=== PATIENT | female | born 1995 | race American Indian/Alaskan Native ===

== ENCOUNTER 2020-06-07 15:33 | Emergency (ER) | payer MEDICAID ==
[2020-06-07 16:38] VITALS: BP 111/72
--- NOTE | 2020-06-07 20:01 | Emergency Department Report ---
ED General Adult HPI - General Chief complaint: Extremity Injury, Upper Stated complaint: NECK/BACK/ARM PAIN Time Seen by Provider: 06/07/20 19:42 Source: patient Mode of arrival: Ambulatory Limitations: No Limitations - History of Present Illness Initial comments: Patient is a 24-year-old female presents emergency room with complaints of right-sided neck pain and right arm pain that began 4 days ago. She denies any fall or injury. 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 She denies any numbness or weakness. she does not report any fever, n/v/d, neck stiffness. She has a past medical history of asthma. No allergies medications. Last menstrual cycle May 12. - Related Data Previous Rx's Medication Instructions Recorded Last Taken Type Naproxen [EC-Naproxen] 500 mg PO BID PRN #14 tablet. 06/07/20 Unknown Rx methOCARBAMOL [Robaxin TAB] 500 mg PO BID PRN #10 tab 06/07/20 Unknown Rx Allergies Allergy/AdvReac Type Severity Reaction Status Date / Time No Known Allergies Allergy Unverified 06/07/20 16:36 ED Review of Systems ROS: Stated complaint: NECK/BACK/ARM PAIN Other details as noted in HPI Comment: All other systems reviewed and negative ED Past Medical Hx - Past Medical History Previous Medical History?: Yes Hx Asthma: Yes - Surgical History Past Surgical History?: Yes Additional Surgical History: x 1 - Social History Smoking Status: Current Every Day Smoker Substance Use Type: None - Medications Home Medications: Home Medications Medication Instructions Recorded Confirmed Last Taken Type Naproxen [EC-Naproxen] 500 mg PO BID PRN #14 tablet. 06/07/20 Unknown Rx methOCARBAMOL [Robaxin TAB] 500 mg PO BID PRN #10 tab 06/07/20 Unknown Rx ED Physical Exam - General Limitations: No Limitations General appearance: alert, in no apparent distress - Head Head exam: Present: atraumatic, normocephalic - Eye Eye exam: Present: normal appearance - ENT ENT exam: Present: mucous membranes moist - Neck Neck exam: Present: normal inspection, tenderness (right sided paraspinal C- spine muscular ttp, no midline C-spine ttp, no step offs, no deformities ), full ROM. Absent: meningismus, lymphadenopathy - Respiratory Respiratory exam: Present: normal lung sounds bilaterally. Absent: respiratory distress, wheezes, rales, rhonchi, stridor, chest wall tenderness, accessory muscle use, decreased breath sounds, prolonged expiratory - Cardiovascular Cardiovascular Exam: Present: regular rate, normal rhythm, normal heart sounds. Absent: systolic murmur, diastolic murmur, rubs, gallop - Extremities Exam Extremities exam: Present: other (mild right sided trapezius ttp, no crepitus, no deformity, FROM of the RUE, no bony ttp of the RUE, neurovascularly intact) - Back Exam Back exam: Present: normal inspection, full ROM. Absent: paraspinal tenderness, vertebral tenderness - Neurological Exam Neurological exam: Present: alert, oriented X3, CN II-XII intact, normal gait. Absent: motor sensory deficit - Psychiatric Psychiatric exam: Present: normal affect, normal mood - Skin Skin exam: Present: warm, dry, intact ED Course Vital Signs 06/07/20 06/07/20 16:36 20:12 Temperature 98.1 F Pulse Rate 79 67 Respiratory 18 16 Rate Blood Pressure 111/72 O2 Sat by Pulse 100 100 Oximetry ED Medical Decision Making - Medical Decision Making Patient is a 24-year-old female presents emergency room with complaints of right-sided neck pain and right arm pain that began 4 days ago. She denies any fall or injury. 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 She denies any numbness or weakness. she does not report any fever, n/v/d, neck stiffness. She has a past medical history of asthma. No allergies medications. Last menstrual cycle May 12. Vitals are normal. On exam:right sided paraspinal C-spine muscular ttp, no midline C-spine ttp, no step offs, no deformities, mild right sided trapezius ttp, no crepitus, no deformity, FROM of the RUE, no bony ttp of the RUE, neurovascularly intact, no focal neuro deficits. Examination appears most likely consistent with muscle strain, patient does repetitive movements and heavy lifting. She has no midline tenderness, no step-offs, no deformities, no focal neuro deficits. Patient given prescription for naproxen and Robaxin. Advised patient Please take medication as prescribed. Do not drive or operate heavy machinery or work while taking muscle relaxer Robaxin. May use ice pack, heating pad, rest, Epson salt bath. Follow-up with a primary care doctor. Return to emergency room for any new or worsening symptoms. - Differential Diagnosis muscle strain, cervical radiculopathy, torticolis, DDD, DJD, bulging disc Critical care attestation.: If time is entered above; I have spent that time in minutes in the direct care of this critically ill patient, excluding procedure time. ED Disposition Clinical Impression: Cervical muscle strain Qualifiers: Encounter type: initial encounter Qualified Code(s): S16.1XXA - Strain of muscle, fascia and tendon at neck level, initial encounter Strain of trapezius muscle Qualifiers: Encounter type: initial encounter Laterality: right Qualified Code(s): S46.811A - Strain of other muscles, fascia and tendons at shoulder and upper arm level, right arm, initial encounter Disposition: TO HOME OR SELFCARE Is pt being admited?: No Does the pt Need Aspirin: No Condition: Stable Instructions: Muscle Strain (ED) Additional Instructions: Please take medication as prescribed. Do not drive or operate heavy machinery or work while taking muscle relaxer Robaxin. May use ice pack, heating pad, rest, Epson salt bath. Follow-up with a primary care doctor. Return to emergency room for any new or worsening symptoms. Prescriptions: Naproxen [EC-Naproxen] 500 mg PO BID PRN #14 tablet.dr SLAUGHTERN Reason: pain methOCARBAMOL [Robaxin TAB] 500 mg PO BID PRN #10 tab PRN Reason: pain Referrals: PRIMARY MD TYRA [Primary Care Provider] - 2-3 Days FARHANA PADILLA MD [Staff Physician] - 2-3 Days [facility] [Provider Group] - 2-3 Days Forms: Work/School Release Form(ED) Time of Disposition: 20:01 Print Language: AMHARIC
== END 2020-06-07 20:12 | disposition home or self-care (01) ==
LOC: ED 15:33
DX: S16.1XXA Strain of muscle, fascia and tendon at neck level, initial encounter (principal); S46.911A Strain of unspecified muscle, fascia and tendon at shoulder and upper arm level, right arm, initial encounter; J45.909 Unspecified asthma, uncomplicated; F17.200 Nicotine dependence, unspecified, uncomplicated; Z98.890 Other specified postprocedural states; Z79.899 Other long term (current) drug therapy; X50.0XXA Overexertion from strenuous movement or load, initial encounter; Y93.89 Activity, other specified; Y92.89 Other specified places as the place of occurrence of the external cause; Y99.8 Other external cause status
CPT/HCPCS: 99282

== ENCOUNTER 2020-08-10 16:36 | Emergency (ER) | payer SELFPAY ==
[2020-08-10 17:18] VITALS: BP 110/78
--- NOTE | 2020-08-10 18:00 | Emergency Department Report ---
ED General Adult HPI - General Chief complaint: Neck Pain/Injury Stated complaint: NECK AND BACK PAIN Time Seen by Provider: 08/10/20 17:58 Source: patient Mode of arrival: Ambulatory Limitations: No Limitations - History of Present Illness Initial comments: 25-year-old -[place] female patient presents with complaints of recurrent right neck muscle spasms x 2 months. Patient was seen here in early June for the same and states the medications prescribed at the time did help with her symptoms. She states the symptoms occur while working due to her having repetitive motions of her right shoulder. She describes the pain as a tightness and rates it as a 7/10 in severity. Patient denies any head or neck trauma, numbness/tingling/weakness in her limbs, or difficulty moving her shoulder. No fever/chills/sweats per patient. - Related Data Previous Rx's Medication Instructions Recorded Last Taken Type Naproxen [EC-Naproxen] 500 mg PO BID PRN #30 tablet. 08/10/20 Unknown Rx methOCARBAMOL [Robaxin TAB] 500 mg PO BID PRN #30 tab 08/10/20 Unknown Rx Allergies Allergy/AdvReac Type Severity Reaction Status Date / Time No Known Allergies Allergy Verified 08/10/20 17:14 ED Review of Systems ROS: Stated complaint: NECK AND BACK PAIN Other details as noted in HPI Constitutional: denies: chills, fever, malaise Respiratory: denies: cough, shortness of breath Cardiovascular: denies: chest pain Musculoskeletal: denies: joint swelling, arthralgia Skin: denies: change in color Hematological/Lymphatic: denies: swollen glands ED Past Medical Hx - Past Medical History Hx Asthma: Yes - Surgical History Additional Surgical History: x 1 - Social History Smoking Status: Current Every Day Smoker Substance Use Type: None - Medications Home Medications: Home Medications Medication Instructions Recorded Confirmed Last Taken Type Naproxen [EC-Naproxen] 500 mg PO BID PRN #30 tablet. 08/10/20 Unknown Rx methOCARBAMOL [Robaxin TAB] 500 mg PO BID PRN #30 tab 08/10/20 Unknown Rx ED Physical Exam - General Limitations: No Limitations General appearance: alert, in no apparent distress - Head Head exam: Present: atraumatic, normocephalic - Eye Eye exam: Present: normal appearance - Neck Neck exam: Present: tenderness (Right trapezius muscle tenderness noted without vertebral tenderness or obvious deformity), full ROM, other (Patient has full range of motion of the right shoulder and normal sensation and perfusion) - Respiratory Respiratory exam: Absent: respiratory distress - Cardiovascular Cardiovascular Exam: Present: regular rate, normal rhythm - Extremities Exam Extremities exam: Present: full ROM - Back Exam Back exam: Present: normal inspection - Neurological Exam Neurological exam: Present: alert, oriented X3, normal gait - Psychiatric Psychiatric exam: Present: normal affect, normal mood ED Course Vital Signs 08/10/20 17:17 Temperature 99.1 F Pulse Rate 84 Respiratory 14 Rate Blood Pressure 110/78 O2 Sat by Pulse 100 Oximetry ED Medical Decision Making - Medical Decision Making 25-year-old -[place] female patient presents with complaints of recurrent right neck muscle spasms x 2 months. Patient was seen here in early June for the same and states the medications prescribed at the time did help with her symptoms. She states the symptoms occur while working due to her having repetitive motions of her right shoulder. She describes the pain as a tightness and rates it as a 7/10 in severity. Patient denies any head or neck trauma, numbness/tingling/weakness in her limbs, or difficulty moving her shoulder. No fever/chills/sweats per patient. No bony abnormalities noted on exam of the cervical spine. She has full range of motion of the shoulder and cervical spine. Patient given naproxen and Robaxin and informed she will need to follow-up with her primary care provider, referral provided. She is well-appearing, her vitals are normal, she is stable for discharge home. Discussed signs and symptoms that should prompt immediate return to the emergency department in detail with patient who verbalizes understanding. Critical care attestation.: If time is entered above; I have spent that time in minutes in the direct care of this critically ill patient, excluding procedure time. ED Disposition Clinical Impression: Muscle spasms of neck Disposition: - TO HOME OR SELFCARE Is pt being admited?: No Condition: Stable Instructions: Muscle Cramps and Spasms Prescriptions: Naproxen [EC-Naproxen] 500 mg PO BID PRN #30 tablet.dr SLAUGHTERN Reason: pain methOCARBAMOL [Robaxin TAB] 500 mg PO BID PRN #30 tab PRN Reason: muscle spasm/tightness Referrals: [facility] [Provider Group] - 3-5 Days
== END 2020-08-10 19:00 | disposition home or self-care (01) ==
LOC: ED 16:36
DX: M62.838 Other muscle spasm (principal); J45.909 Unspecified asthma, uncomplicated; F17.200 Nicotine dependence, unspecified, uncomplicated; Z79.899 Other long term (current) drug therapy; Z98.890 Other specified postprocedural states
CPT/HCPCS: 99281